=== PATIENT | female | born 1980 | race Caucasian/White ===

== ENCOUNTER 2020-10-25 14:19 | Outpatient (CLI) | payer OTHER | END 2020-10-25 17:30 | disposition home or self-care (01) | LOC: GENOP 14:19 | DX: O47.1 False labor at or after 37 completed weeks of gestation (principal); Z3A.38 38 weeks gestation of pregnancy | CPT/HCPCS: 36415; 81001; 85025; G0463 ==

== ENCOUNTER 2020-10-30 07:08 | Inpatient (IN) | payer OTHER ==
[~2020-10-30] VITALS: Ht 162.6 cm; Wt 72.6 kg
[2020-10-30 08:15] LABS: RED BLOOD COUNT 3.77 M/UL (4.00-5.10); WHITE BLOOD COUNT 6.5 K/UL (4.5-11.0)
[2020-10-30] MEDS ORDERED: FOLIC ACID 1 MG1 MG PO (08:33)
[2020-10-30] MEDS ORDERED: PRENATABS RX T1 EACH PO (08:34)
[2020-10-30] MEDS ORDERED: B12 ACTIVE1000 MCG PO (08:36)
== END 2020-10-30 19:17 | DRG 807 ==
LOC: GENOP 07:08 → OB 07:27
PROVIDERS: ADMIT Obstetrics & Gynecology
PROC: 10E0XZZ Delivery of Products of Conception, External Approach (ICD-10-PCS; principal; 2020-10-30)
PROC: 0KQM0ZZ Repair Perineum Muscle, Open Approach (ICD-10-PCS; 2020-10-30)
PROC: 3E033VJ Introduction of Other Hormone into Peripheral Vein, Percutaneous Approach (ICD-10-PCS; 2020-10-30)
PROC: 4A1HXCZ Monitoring of Products of Conception, Cardiac Rate, External Approach (ICD-10-PCS; 2020-10-30)
DX: O70.1 Second degree perineal laceration during delivery (principal); Z37.0 Single live birth; Z3A.39 39 weeks gestation of pregnancy; Z20.822 Contact with and (suspected) exposure to COVID-19
CPT/HCPCS: 36415; 81001; 82800; 85025; J0595; J1580; J2590; J7120

== ENCOUNTER 2020-11-11 06:52 | Inpatient (IN) | payer OTHER ==
[~2020-11-11] VITALS: Ht 162.6 cm; Wt 68.0 kg
[~2020-11-11 06:52] MED LIST: B12 ACTIVE1000 MCG PO; FOLIC ACID 1 MG1 MG PO; PRENATABS RX T1 EACH PO
[2020-11-11 07:24] LABS: HEMOGLOBIN 9.4 gm/dl (12.3-15.3); RED BLOOD COUNT 3.29 M/UL (4.00-5.10); WHITE BLOOD COUNT 7.1 K/UL (4.5-11.0)
[2020-11-11] MEDS ORDERED: TYLENOL325 MG PO (07:49)
[2020-11-11] MEDS ORDERED: IBU600 MG PO (07:49)
[2020-11-11] MEDS ORDERED: COLACE 100MG C100 MG PO (07:49)
[2020-11-11] MEDS ORDERED: IRON SUPPLEMENT PO (07:50)
[2020-11-11] MEDS ORDERED: HYDROXYZINE HCL25 MG PO (07:51)
[2020-11-11 09:06] LABS: BUN/CREATININE RATIO 17 (0-10)
[2020-11-11 09:42] LABS: HEMOGLOBIN 9.9 gm/dl (12.3-15.3)
[2020-11-12 05:53] LABS: WHITE BLOOD COUNT 5.6 K/UL (4.5-11.0)
[2020-11-12 05:54] LABS: RED BLOOD COUNT 2.41 M/UL (4.00-5.10)
[2020-11-12 05:56] LABS: HEMOGLOBIN 6.8 gm/dl (12.3-15.3)
[2020-11-12] MEDS ORDERED: CLINDAMYCIN HC300 MG PO (14:20)
[2020-11-12] MEDS ORDERED: ZOLOFT50 MG PO (14:20)
[2020-11-12] MEDS ORDERED: FLAGYL500 MG PO (14:20)
[2020-11-12] MEDS ORDERED: IRON325 M1 PO (14:20)
[2020-11-12] MEDS ORDERED: DOCUSATE SODIU100 MG PO (14:20)
== END 2020-11-12 14:00 | disposition home or self-care (01) | DRG 769 ==
LOC: OR 06:52 → OB 10:28
PROVIDERS: Obstetrics & Gynecology; ADMIT Obstetrics & Gynecology
PROC: 10D17ZZ Extraction of Products of Conception, Retained, Via Natural or Artificial Opening (ICD-10-PCS; principal; 2020-11-11 07:30)
DX: O72.2 Delayed and secondary postpartum hemorrhage (principal); D62 Acute posthemorrhagic anemia; O86.12 Endometritis following delivery; O72.1 Other immediate postpartum hemorrhage; O90.89 Other complications of the puerperium, not elsewhere classified; O90.81 Anemia of the puerperium; Z20.822 Contact with and (suspected) exposure to COVID-19
CPT/HCPCS: 36415; 80048; 80170; 85014; 85018; 85025; 86850; 86900; 86901; 86920; 87040; 87070; 87205; J1100; J1580; J2001; J2210; J2250; J2370; J2405; J2590; J2704; J2765; J2795; J3010; J7030; J7120; P9016